=== PATIENT | male | born 1940 | race Caucasian/White ===

== ENCOUNTER 2018-11-27 00:18 | Emergency (ER) | payer MEDICARE, OTHER ==
[2018-11-27] MEDS ORDERED: Ketorolac Tromethamine 30 MG/ML VIAL ONE (02:49)
--- NOTE | 2018-11-27 07:27 | RAD ---
XR Hip Rt 2-3 View History: [Fall] Comparison: Radiograph 2015 Findings: No acute fracture or malalignment. Moderate vascular calcifications. Subcortical cysts of t he right femoral head/neck junction. Right obturator ring is intact. Impression: Dense vascular calcifications. No acute fracture or malalignment.
--- NOTE | 2018-11-27 07:33 | CT ---
PRELIMINARY REPORT/[facility]/EMERGENCY AFTER HOURS PROCEDURE: EXAM: CT Pelvis Without Contrast, Skeletal EXAM DATE/TIME: 11/27/2018 2:17 AM CLINICAL HISTORY: 78 years old, male; Injury or trauma; Fall; Initial encounter; Abrasion; Right; Hip; Patient HX: [place] ent reports fall 3 weeks ago, he reports right hip pain since this time. PT reports he was seen by pcp fo r pain and xrays were negative. PT reports increase in severity of pain today. PT reports he is able to ambulate but it causes pain. PT has been taking Tylenol for his symptoms. PT denies radiation of pain, no numbness or tingling in lower extremities. TECHNIQUE: Imaging protocol: Axial computed tomography images of the pelvis without intravenous contrast. Exam focused on the skeletal structures. Coronal and sagittal reformatted images were created and reviewed. COMPARISON: No relevant prior studies available. FINDINGS: Reproductive: There is trace scrotal hydroceles are partially visualized. The prostate gland demonstrates mild nonspecific enlargement. The seminal vesicles are normal. Vasculature: The vasculature demonstrates diffuse marked atherosclerotic calcification. 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 Bones/joints: No acute hip fracture is demonstrated. There is grade 2 anterolisthesis of L5 on S1 due to spondylolisthesis and degenerative change. Soft tissues: Unremarkable. IMPRESSION: 1. No acute hip fracture is demonstrated. 2. There is grade 2 anterolisthesis of L5 on S1 due to spondylolisthesis and degenerative change. Thank you for allowing us to participate in the care of your patient. Dictated and Authenticated by: Narayan Lopez MD 11/27/2018 3:54 AM Central Time ([place] & [place]) FINAL REPORT CT Pelvis WO Con History: [Pain. Difficulty ambulating.] Comparison: Radiograph same day Findings: Grade 2 anterolisthesis of L5 over S1 with bilateral pars interarticularis defects as well as neural foraminal narrowing.. Very dense vascular calcifications. The obturator rings are intact. E nthesopathic changes along the hamstring tendon origins bilaterally. Impression: No acute fracture or malalignment. Findings and impression are concordant with the prelim inary report. Transcribed Date/Time: 11/27/2018 7:51 AM
--- NOTE | 2018-11-27 07:36 | RAD ---
XR Pelvis AP STANDARD History: [Fall. Pain.] Comparison: Radiograph same day Findings: No acute fracture or malalignment. Dense vascular calcifications. Impression: No acute fracture or malalignment.
== END 2018-11-27 04:20 | disposition home or self-care (01) ==
LOC: ERS 00:18
DX: M54.5 Low back pain (principal); M25.551 Pain in right hip; Z86.73 Personal history of transient ischemic attack (TIA), and cerebral infarction without residual deficits; E11.9 Type 2 diabetes mellitus without complications; I10 Essential (primary) hypertension; F17.210 Nicotine dependence, cigarettes, uncomplicated; Z79.899 Other long term (current) drug therapy; Z79.84 Long term (current) use of oral hypoglycemic drugs
CPT/HCPCS: 72170; 72192; 96372; J1885

== ENCOUNTER 2021-03-05 18:30 | Inpatient (IN) | payer MEDICARE, OTHER ==
[~2021-03-05 18:30] MED LIST: Iopamidol-370 76% 500 ML 1 ML ONE
[2021-03-05 19:01] LABS: Hemoglobin 9.5 g/dL (14.0-18.0); Red Blood Cell (RBC) Count 4.24 mill/uL (4.70-6.10); White Blood Cell (WBC) Count 18.7 thou/uL (4.8-10.8)
[2021-03-05 19:15] LABS: Bilirubin Negative (Negative); Blood, Urine Negative (Negative); Clarity Clear (Clear); Glucose, Urine (Dipstick) Normal (Negative); Ketone, Urine Negative (Negative); Leukocyte Negative Leu/uL (Negative); Nitrite Negative (Negative); Protein, Urine (Dipstick) 10 mg/dL (Neg-Trace); Specific Gravity, Urine 1.016 (1.002-1.036); Urobilinogen Normal mg/dL (Less than 2); pH, Urine 5.5 (5.0-9.0)
[2021-03-05 19:17] LABS: ALT (SGPT) 10 U/L (8-55); AST (SGOT) 17 U/L (5-34); Albumin 3.1 g/dL (3.4-4.8); Alkaline Phosphatase 91 U/L (40-110); Anion Gap 16 mmol/L (10-20); BUN (Urea Nitrogen) 31 mg/dL (8.4-25.7); Bilirubin, Total 0.8 mg/dL (0.2-1.2); Calc. Creatinine Clearance 0 mL/min (70-130); Calcium 7.9 mg/dL (7.8-10.44); Carbon Dioxide 23 mmol/L (23-31); Chloride 105 mmol/L (98-107); Globulin 2.9 g/dL (2.4-3.5); Glucose 94 mg/dL (83-110); Potassium 3.6 mmol/L (3.5-5.1); Sodium 140 mmol/L (136-145)
[2021-03-05 19:38] LABS: Band 45 % (5-11); Hypochromia SLIGHT = 6-15 cells (100X) (0-5/hpf); Lymphocytes 4 % (21-51); MDiff Complete? YES; Mean Corpuscular HGB CONC 30.9 g/dL (32.0-36.0); Mean Corpuscular Hemoglobin 22.4 pg (27.0-31.0); Mean Corpuscular Volume 72.6 fL (78.0-98.0); Microcytosis SLIGHT = 6-15 cells (100X) (0-5/hpf); Monocytes 1 % (0-10); Neutrophil 50 % (42-75); Platelet Count 121 thou/uL (130-400); Platelet Morphology Comment Appears Decreased; Polychromasia SLIGHT = 2-3 cells (100X) (0-2/hpf); RBC Distribution Width 19.7 % (11.5-14.5); Reflex for Review?? YES; Target Cells SLIGHT = 2-5 cells (100X) (0-1/hpf); Tear Drops SLIGHT = 2-5 cells (100X) (0-1/hpf)
[2021-03-05 19:49] LABS: CKMB 1.2 ng/mL (0-6.6)
[2021-03-05] MEDS ORDERED: cefTRIAXone\\ROCEPHIN 2 GM VIAL ONE (20:04)
[2021-03-05] MEDS ORDERED: Vancomycin 1 GM/200 ML BAG ONE (20:04)
[2021-03-05] MEDS ORDERED: Cefepime 2 GM VIAL ONE (20:07)
[2021-03-05 21:59] LABS: Actual Bicarbonate (HCO3a) 22.1 mEq/L (22-28); Analyzer IN Cardio ER; Base Excess (BEa) -0.8 mEq/L (-2.0 to +3.0); CO2 Tension 30.4 mmHg (35.0-45.0); Calcium, Ionized (arterial) 0.99 mmol/L (1.12-1.30); Carboxyhemoglobin (COHb) 1.4 gm% (0.0-3.0); Hemoglobin (Hb) 9.7 g/dL (14.0-18.0); Potassium - ABG Lab 3.17 mmol/L (3.70-5.30); pH, Arterial 7.48 (7.35-7.45)
[2021-03-05 22:13] LABS: Lactic Acid 2.9 mmol/L (0.5-2.2)
[2021-03-05 22:24] LABS: O2 Tension (PaO2), arterial 51.1 mmHg (> 60.0); Puncture Site LRA
[2021-03-06 00:34] LABS: SARS-CoV-2 NAA Rapid Test Not Detected (NotDetected)
[2021-03-06] MEDS ORDERED: Sodium Chloride 0.9% 1,000 ML IV SCH (03:30)
[2021-03-06] MEDS ORDERED: Ondansetron PF 4 MG/2 ML Vial IVP PRN (03:30)
[2021-03-06] MEDS ORDERED: Ondansetron ODT 4 MG TAB SL PRN (03:30)
[2021-03-06] MEDS ORDERED: Dextrose 5% in Water 1,000 ML IV PRN (04:09)
[2021-03-06] MEDS ORDERED: Dextrose 50% Abboject 50 ML SYRINGE SLOW IVP PRN (04:09)
[2021-03-06] MEDS ORDERED: HumaLOG 300 UNITS/3 ML VIAL SC PRN (04:15)
[2021-03-06] MEDS ORDERED: Acetaminophen 325 MG TAB PO PRN (04:15)
[2021-03-06 04:56] LABS: Lactic Acid 1.1 mmol/L (0.5-2.2)
[2021-03-06] MEDS ORDERED: Cefepime 2 GM in Sodium Chloride 0.9% 100 ML IVPB SCH (05:00)
[2021-03-06 05:05] LABS: Troponin I 0.149 ng/mL (< 0.028)
[2021-03-06] MEDS: Azithromycin 500 MG in Sodium Chloride 0.9% 250 ML 250 ML IVPB SCH (06:45)
[2021-03-06] MEDS ORDERED: Ondansetron ODT 8 MG TAB PO PRN (08:32)
[2021-03-06] MEDS ORDERED: Enoxaparin Sodium 40 MG/0.4 ML SYRINGE SC SCH (09:00)
[2021-03-06] MEDS ORDERED: Lactated Ringer's 500 ML IV SCH (10:00)
[2021-03-06] MEDS: Ferrous Sulfate 325 MG TAB PO SCH ×2 (10:25→21:00)
[2021-03-06] MEDS: Potassium Chloride 10 MEQ TAB PO SCH (10:25)
[2021-03-06 12:11] LABS: Hemoglobin A1c 5.7 % (4.0-6.0)
[2021-03-06] MEDS: Atorvastatin Calcium 40 MG TAB PO SCH (21:00)
[2021-03-06] MEDS: cefTRIAXone\\ROCEPHIN 2 GM in Sodium Chloride 0.9% 100 ML IVPB SCH (21:00)
[2021-03-07] MEDS ORDERED: Ondansetron ODT 4 MG TAB PO PRN ×2 (00:12→10:44)
[2021-03-07] MEDS ORDERED: Enoxaparin Sodium 80 MG/0.8 ML SYRINGE SC SCH ×2 (01:00→13:00)
[2021-03-07] MEDS ORDERED: Lactated Ringer's 500 ML IV SCH (01:30)
[2021-03-07] MEDS: Diltiazem HCl 125 MG, Admixture Fee 1 EACH in Sodium Chloride 0.9% 100 ML IVPB SCH (04:10)
[2021-03-07 04:20] LABS: Anion Gap 11 mmol/L (10-20); BUN (Urea Nitrogen) 14 mg/dL (8.4-25.7); Calc. Creatinine Clearance 74 mL/min (70-130); Calcium 7.7 mg/dL (7.8-10.44); Carbon Dioxide 25 mmol/L (23-31); Chloride 110 mmol/L (98-107); Glucose 135 mg/dL (83-110); Sodium 143 mmol/L (136-145)
[2021-03-07 04:30] LABS: Hemoglobin 8.9 g/dL (14.0-18.0); MDiff Complete? YES; Mean Corpuscular HGB CONC 31.6 g/dL (32.0-36.0); Mean Corpuscular Hemoglobin 23.1 pg (27.0-31.0); Mean Corpuscular Volume 73.1 fL (78.0-98.0); Mean Platelet Volume 9.2 fL (7.4-10.4); Platelet Count 117 thou/uL (130-400); RBC Distribution Width 19.6 % (11.5-14.5); Red Blood Cell (RBC) Count 3.85 mill/uL (4.70-6.10); White Blood Cell (WBC) Count 35.3 thou/uL (4.8-10.8)
[2021-03-07 04:31] LABS: Band 38 % (5-11); Hypochromia SLIGHT = 6-15 cells (100X) (0-5/hpf); Large Platelets SLIGHT; Lymphocytes 2 % (21-51); Metamyelocyte 3 % (0-0); Microcytosis SLIGHT = 6-15 cells (100X) (0-5/hpf); Neutrophil 57 % (42-75); Platelet Morphology Comment Appears Decreased
[2021-03-07 04:33] LABS: Potassium 2.8 mmol/L (3.5-5.1)
[2021-03-07] MEDS ORDERED: Electrolyte Replacement Protocol 1 EACH FS PRN (04:48)
[2021-03-07] MEDS: Potassium Chloride 20 MEQ TAB PO SCH ×2 (06:14→10:32)
[2021-03-07] MEDS: Azithromycin 500 MG in Sodium Chloride 0.9% 250 ML 250 ML IVPB SCH (06:14)
[2021-03-07 08:23] LABS: Troponin I 0.073 ng/mL (< 0.028)
[2021-03-07] MEDS ORDERED: Magnesium Sulfate 4 GM in Sodium Chloride 0.9% 250 ML 250 ML IVPB SCH (08:30)
[2021-03-07] MEDS ORDERED: Magnesium 2 GM/50 ML 2 GM in Premix Bag 1 BAG IVPB SCH (08:30)
[2021-03-07] MEDS: Potassium Chloride 10 MEQ TAB PO SCH (10:32)
[2021-03-07 15:56] LABS: Anion Gap 11 mmol/L (10-20); BUN (Urea Nitrogen) 12 mg/dL (8.4-25.7); Calc. Creatinine Clearance 67 mL/min (70-130); Carbon Dioxide 24 mmol/L (23-31); Chloride 111 mmol/L (98-107); Glucose 237 mg/dL (83-110); Potassium 3.6 mmol/L (3.5-5.1); Sodium 142 mmol/L (136-145)
[2021-03-07] MEDS: metFORMIN 500 MG TAB PO SCH (17:15)
[2021-03-07] MEDS ORDERED: Enoxaparin Sodium 40 MG/0.4 ML SYRINGE SC SCH (21:00)
[2021-03-07] MEDS: cefTRIAXone\\ROCEPHIN 2 GM in Sodium Chloride 0.9% 100 ML IVPB SCH (21:39)
[2021-03-07] MEDS: Enoxaparin Sodium 80 MG/0.8 ML SYRINGE SC SCH (21:39)
[2021-03-07] MEDS: Atorvastatin Calcium 40 MG TAB PO SCH (21:40)
[2021-03-08 04:27] LABS: Anion Gap 9 mmol/L (10-20); BUN (Urea Nitrogen) 10 mg/dL (8.4-25.7); Calc. Creatinine Clearance 83 mL/min (70-130); Calcium 7.8 mg/dL (7.8-10.44); Carbon Dioxide 25 mmol/L (23-31); Chloride 112 mmol/L (98-107); Glucose 108 mg/dL (83-110); Iron 121 ug/dL (65-175); Iron Binding Capacity, Total 194 mcg/dL (261-462); Magnesium 1.7 mg/dL (1.6-2.6); Potassium 3.1 mmol/L (3.5-5.1); Sodium 143 mmol/L (136-145)
[2021-03-08 05:51] LABS: Hemoglobin 8.7 g/dL (14.0-18.0); Mean Corpuscular HGB CONC 30.8 g/dL (32.0-36.0); Mean Corpuscular Hemoglobin 22.6 pg (27.0-31.0); Mean Corpuscular Volume 73.5 fL (78.0-98.0); Platelet Count 122 thou/uL (130-400); RBC Distribution Width 19.7 % (11.5-14.5); Red Blood Cell (RBC) Count 3.84 mill/uL (4.70-6.10); White Blood Cell (WBC) Count 35.6 thou/uL (4.8-10.8)
[2021-03-08 05:52] LABS: Anisocytosis MODERATE=16-30 cells (100X) (0-5/hpf); Band 24 % (5-11); Lymphocytes 3 % (21-51); MDiff Complete? YES; Metamyelocyte 1 % (0-0); Myelocyte 1 % (0-0); Neutrophil 71 % (42-75); Platelet Morphology Comment Appears Decreased
[2021-03-08] MEDS ORDERED: Magnesium 2 GM/50 ML 2 GM in Premix Bag 1 BAG IVPB SCH (06:00)
[2021-03-08] MEDS ORDERED: Potassium Chloride 20 MEQ in Premix Bag 1 BAG IVPB SCH (06:00)
[2021-03-08] MEDS: Azithromycin 500 MG in Sodium Chloride 0.9% 250 ML 250 ML IVPB SCH (06:33)
[2021-03-08] MEDS: Diltiazem HCl 125 MG, Admixture Fee 1 EACH in Sodium Chloride 0.9% 100 ML IVPB SCH (06:33)
[2021-03-08] MEDS ORDERED: Potassium Chloride 20 MEQ TAB PO SCH (07:00)
[2021-03-08] MEDS: Potassium Chloride 10 MEQ TAB PO SCH (08:55)
[2021-03-08] MEDS: metFORMIN 500 MG TAB PO SCH ×2 (08:55→17:02)
[2021-03-08] MEDS: Enoxaparin Sodium 80 MG/0.8 ML SYRINGE SC SCH (08:56)
[2021-03-08] MEDS ORDERED: Metoprolol Tartrate 25 MG TAB PO SCH (09:30)
[2021-03-08] MEDS: Atorvastatin Calcium 40 MG TAB PO SCH (22:08)
[2021-03-08] MEDS: Apixaban 5 MG TAB PO SCH (22:08)
[2021-03-08] MEDS: cefTRIAXone\\ROCEPHIN 2 GM in Sodium Chloride 0.9% 100 ML IVPB SCH (22:08)
[2021-03-08] MEDS: Metoprolol Tartrate 25 MG TAB PO SCH (22:09)
[2021-03-09 05:07] LABS: Hemoglobin 8.7 g/dL (14.0-18.0); Mean Corpuscular HGB CONC 31.1 g/dL (32.0-36.0); Mean Corpuscular Volume 74.1 fL (78.0-98.0); Platelet Count 125 thou/uL (130-400); RBC Distribution Width 19.9 % (11.5-14.5); Red Blood Cell (RBC) Count 3.78 mill/uL (4.70-6.10); White Blood Cell (WBC) Count 16.8 thou/uL (4.8-10.8)
[2021-03-09 05:12] LABS: Anion Gap 11 mmol/L (10-20); BUN (Urea Nitrogen) 8 mg/dL (8.4-25.7); Calc. Creatinine Clearance 89 mL/min (70-130); Calcium 8.1 mg/dL (7.8-10.44); Carbon Dioxide 24 mmol/L (23-31); Chloride 111 mmol/L (98-107); Glucose 120 mg/dL (83-110); Magnesium 1.5 mg/dL (1.6-2.6); Sodium 142 mmol/L (136-145)
[2021-03-09 05:44] LABS: Band 14 % (5-11); Hypochromia SLIGHT = 6-15 cells (100X) (0-5/hpf); Lymphocytes 7 % (21-51); MDiff Complete? YES; Microcytosis SLIGHT = 6-15 cells (100X) (0-5/hpf); Monocytes 2 % (0-10); Neutrophil 77 % (42-75)
[2021-03-09] MEDS: Azithromycin 500 MG in Sodium Chloride 0.9% 250 ML 250 ML IVPB SCH (06:23)
[2021-03-09] MEDS: Apixaban 5 MG TAB PO SCH ×2 (10:07→22:01)
[2021-03-09] MEDS: metFORMIN 500 MG TAB PO SCH ×2 (10:11→17:40)
[2021-03-09] MEDS: Metoprolol Tartrate 25 MG TAB PO SCH ×2 (10:13→22:02)
[2021-03-09] MEDS: Magnesium Oxide 400 MG TAB PO SCH ×2 (10:15→22:01)
[2021-03-09] MEDS: Potassium Chloride 10 MEQ TAB PO SCH (10:15)
[2021-03-09 10:33] VITALS: BMI 24.0
[2021-03-09] MEDS ORDERED: Furosemide 40 MG/4 ML VIAL SLOW IVP SCH (19:30)
[2021-03-09] MEDS: cefTRIAXone\\ROCEPHIN 2 GM in Sodium Chloride 0.9% 100 ML IVPB SCH (22:01)
[2021-03-09] MEDS: Atorvastatin Calcium 40 MG TAB PO SCH (22:01)
[2021-03-10] MEDS: Azithromycin 500 MG in Sodium Chloride 0.9% 250 ML 250 ML IVPB SCH (05:47)
[2021-03-10 07:00] LABS: Hemoglobin 8.7 g/dL (14.0-18.0); Mean Corpuscular Hemoglobin 22.8 pg (27.0-31.0); Mean Corpuscular Volume 73.6 fL (78.0-98.0); Mean Platelet Volume 7.9 fL (7.4-10.4); Platelet Count 123 thou/uL (130-400); RBC Distribution Width 19.3 % (11.5-14.5); White Blood Cell (WBC) Count 7.9 thou/uL (4.8-10.8)
[2021-03-10 08:02] LABS: Chloride 108 mmol/L (98-107); Potassium 3.3 mmol/L (3.5-5.1); Sodium 142 mmol/L (136-145)
[2021-03-10 08:03] LABS: Calcium 8.2 mg/dL (7.8-10.44); Glucose 118 mg/dL (83-110)
[2021-03-10 08:05] LABS: Anion Gap 11 mmol/L (10-20); Carbon Dioxide 26 mmol/L (23-31)
[2021-03-10 08:06] LABS: Calc. Creatinine Clearance 89 mL/min (70-130)
[2021-03-10 08:07] LABS: BUN (Urea Nitrogen) 9 mg/dL (8.4-25.7)
[2021-03-10 08:08] LABS: Magnesium 1.3 mg/dL (1.6-2.6)
[2021-03-10 09:01] LABS: Band 18 % (5-11); Hypochromia SLIGHT = 6-15 cells (100X) (0-5/hpf); Lymphocytes 23 % (21-51); MDiff Complete? YES; Microcytosis SLIGHT = 6-15 cells (100X) (0-5/hpf); Monocytes 1 % (0-10); Myelocyte 2 % (0-0); Neutrophil 56 % (42-75); Nucleated RBC 2 % (0); Platelet Morphology Comment Appears Decreased; Polychromasia SLIGHT = 2-3 cells (100X) (0-2/hpf)
[2021-03-10] MEDS: metFORMIN 500 MG TAB PO SCH ×2 (09:41→17:24)
[2021-03-10] MEDS: Metoprolol Tartrate 25 MG TAB PO SCH ×2 (09:41→21:05)
[2021-03-10] MEDS: Apixaban 5 MG TAB PO SCH ×2 (09:42→21:04)
[2021-03-10] MEDS: Potassium Chloride 10 MEQ TAB PO SCH (09:42)
[2021-03-10] MEDS ORDERED: Potassium Chloride 20 MEQ TAB PO SCH (11:30)
[2021-03-10] MEDS: Atorvastatin Calcium 40 MG TAB PO SCH (21:04)
[2021-03-10] MEDS: cefTRIAXone\\ROCEPHIN 2 GM in Sodium Chloride 0.9% 100 ML IVPB SCH (21:05)
[2021-03-11 05:32] LABS: Anion Gap 10 mmol/L (10-20); BUN (Urea Nitrogen) 7 mg/dL (8.4-25.7); Calc. Creatinine Clearance 92 mL/min (70-130); Calcium 8.1 mg/dL (7.8-10.44); Carbon Dioxide 25 mmol/L (23-31); Chloride 110 mmol/L (98-107); Glucose 123 mg/dL (83-110); Magnesium 1.4 mg/dL (1.6-2.6); Potassium 3.4 mmol/L (3.5-5.1); Sodium 142 mmol/L (136-145)
[2021-03-11 05:37] LABS: Anisocytosis SLIGHT = 6-15 cells (100X) (0-5/hpf); Hemoglobin 8.4 g/dL (14.0-18.0); Hypochromia SLIGHT = 6-15 cells (100X) (0-5/hpf); MDiff Complete? YES; Mean Corpuscular HGB CONC 31.7 g/dL (32.0-36.0); Mean Corpuscular Hemoglobin 23.4 pg (27.0-31.0); Mean Platelet Volume 12.4 fL (7.4-10.4); Microcytosis SLIGHT = 6-15 cells (100X) (0-5/hpf); Platelet Count 123 thou/uL (130-400); RBC Distribution Width 19.6 % (11.5-14.5); Red Blood Cell (RBC) Count 3.59 mill/uL (4.70-6.10); White Blood Cell (WBC) Count 5.3 thou/uL (4.8-10.8)
[2021-03-11 05:40] LABS: Band 13 % (5-11); Eosinophils 1 % (0-10); Lymphocytes 36 % (21-51); Monocytes 4 % (0-10); Neutrophil 46 % (42-75)
[2021-03-11] MEDS: Azithromycin 500 MG in Sodium Chloride 0.9% 250 ML 250 ML IVPB SCH (06:01)
[2021-03-11] MEDS: Potassium Chloride 20 MEQ TAB PO SCH (08:52)
[2021-03-11] MEDS: Apixaban 5 MG TAB PO SCH ×2 (08:52→21:22)
[2021-03-11] MEDS: metFORMIN 500 MG TAB PO SCH ×2 (08:53→16:16)
[2021-03-11] MEDS: glipiZIDE 5 MG TAB PO SCH (08:53)
[2021-03-11] MEDS: Magnesium Oxide 400 MG TAB PO SCH ×2 (08:53→21:22)
[2021-03-11] MEDS: Metoprolol Tartrate 25 MG TAB PO SCH ×2 (08:53→21:22)
[2021-03-11] MEDS ORDERED: Metamucil PACK PO PRN (13:02)
[2021-03-11] MEDS: Cefdinir 300 MG CAP PO SCH (21:21)
[2021-03-11] MEDS: Atorvastatin Calcium 40 MG TAB PO SCH (21:22)
[2021-03-12 06:05] LABS: Anion Gap 8 mmol/L (10-20); BUN (Urea Nitrogen) 4 mg/dL (8.4-25.7); Calc. Creatinine Clearance 86 mL/min (70-130); Calcium 8.3 mg/dL (7.8-10.44); Carbon Dioxide 25 mmol/L (23-31); Chloride 112 mmol/L (98-107); Glucose 111 mg/dL (83-110); Magnesium 1.3 mg/dL (1.6-2.6); Potassium 3.4 mmol/L (3.5-5.1); Sodium 142 mmol/L (136-145)
[2021-03-12 06:15] LABS: Band 11 % (5-11); Eosinophils 1 % (0-10); Hemoglobin 8.2 g/dL (14.0-18.0); Lymphocytes 31 % (21-51); MDiff Complete? YES; Mean Corpuscular HGB CONC 31.6 g/dL (32.0-36.0); Mean Corpuscular Hemoglobin 23.2 pg (27.0-31.0); Mean Corpuscular Volume 73.5 fL (78.0-98.0); Mean Platelet Volume 11.2 fL (7.4-10.4); Monocytes 15 % (0-10); Myelocyte 1 % (0-0); Neutrophil 38 % (42-75); Nucleated RBC 1 % (0); Platelet Count 134 thou/uL (130-400); Platelet Morphology Comment Appears Adequate; RBC Distribution Width 19.1 % (11.5-14.5); Reactive Lymphocytes 3 % (0-10); Red Blood Cell (RBC) Count 3.53 mill/uL (4.70-6.10); White Blood Cell (WBC) Count 4.8 thou/uL (4.8-10.8)
[2021-03-12] MEDS ORDERED: Magnesium 2 GM/50 ML 2 GM in Premix Bag 1 BAG IVPB SCH (06:30)
[2021-03-12] MEDS: glipiZIDE 5 MG TAB PO SCH (06:49)
[2021-03-12] MEDS ORDERED: glipiZIDE 5 MG TAB ONE (06:52)
[2021-03-12] MEDS ORDERED: Non-Formulary Item 1 EACH (Losartan Potassium [Cozaar] 100 MG Tablet) PO SCH (09:00)
[2021-03-12] MEDS ORDERED: Losartan 25 MG TAB PO SCH (09:00)
[2021-03-12] MEDS: Potassium Chloride 20 MEQ TAB PO SCH (09:31)
[2021-03-12] MEDS: Apixaban 5 MG TAB PO SCH (09:32)
[2021-03-12] MEDS: Metoprolol Tartrate 25 MG TAB PO SCH (09:32)
[2021-03-12] MEDS: Cefdinir 300 MG CAP PO SCH (09:33)
[2021-03-12] MEDS: metFORMIN 500 MG TAB PO SCH (09:33)
[2021-03-12 16:04] VITALS: BP 135/52; TEMP 97.7
== END 2021-03-12 17:30 | disposition home health service (06) | DRG 871 ==
LOC: ERS 18:30 → IMCU/EMU 21:31 → 2NO 03-08 21:30 → SURG B 03-11 21:15
PROVIDERS: ADMIT Family Medicine; ATTEND Family Medicine
DX: A41.9 Sepsis, unspecified organism (principal); J96.01 Acute respiratory failure with hypoxia; J18.9 Pneumonia, unspecified organism; N17.9 Acute kidney failure, unspecified; C16.9 Malignant neoplasm of stomach, unspecified; Z20.822 Contact with and (suspected) exposure to COVID-19; F17.210 Nicotine dependence, cigarettes, uncomplicated; I25.10 Atherosclerotic heart disease of native coronary artery without angina pectoris; D50.9 Iron deficiency anemia, unspecified; I35.0 Nonrheumatic aortic (valve) stenosis; I10 Essential (primary) hypertension; E11.9 Type 2 diabetes mellitus without complications; I48.0 Paroxysmal atrial fibrillation; E87.6 Hypokalemia; E83.42 Hypomagnesemia; Z79.84 Long term (current) use of oral hypoglycemic drugs; Z86.73 Personal history of transient ischemic attack (TIA), and cerebral infarction without residual deficits; Z79.899 Other long term (current) drug therapy
CPT/HCPCS: 0240U; 36415; 36416; 36600; 70450; 71045; 71275; 72125; 72156; 80048; 80053; 81003; 82553; 82728; 82805; 83036; 83540; 83550; 83605; 83735; 84145; 84484; 85025; 85060; 87040; 87086; 93005; 93010; 93306; 94640; 94760; 96365; 96367; J0456; J0692; J0696; J1650; J1815; J1940; J3370; J3475; J3490; J7050; J7620; Q0162; Q9967